=== PATIENT | female | born 1995 | race Asian ===

== ENCOUNTER 2020-11-09 01:39 | Emergency (ER) | payer OTHER ==
[2020-11-09] MEDS ORDERED: ACETAMINOPHEN 1000 MG/100 ML VIAL (NON FORMULARY) IVPB ONE (01:49)
[2020-11-09] MEDS ORDERED: LACTATED RINGERS SOLUTION 1000 ML INFUS.BAG IV ONE (01:49)
[2020-11-09] MEDS ORDERED: MORPHINE SULFATE 2 MG/ML VIAL IVPUSH ONE (01:51)
[2020-11-09 01:54] VITALS: BMI 31.1
[2020-11-09] MEDS ORDERED: MORPHINE SULFATE 2 MG/ML VIAL ONE (02:07)
[2020-11-09] MEDS ORDERED: ACETAMINOPHEN INJECTION 100 ML IVPB ONE (02:07)
[2020-11-09 03:45] VITALS: BP 134/86; PULSE 76; TEMP 98.6
== END 2020-11-09 03:46 | disposition short-term general hospital (02) ==
LOC: JER 01:39
PROC: 3E033NZ Introduction of Analgesics, Hypnotics, Sedatives into Peripheral Vein, Percutaneous Approach (ICD-10-PCS; principal; 2020-11-09)
PROC: 3E033GC Introduction of Other Therapeutic Substance into Peripheral Vein, Percutaneous Approach (ICD-10-PCS; 2020-11-09)
DX: T20.10XA Burn of first degree of head, face, and neck, unspecified site, initial encounter (principal); T21.11XA Burn of first degree of chest wall, initial encounter
CPT/HCPCS: 99284-25; J0131

== ENCOUNTER 2022-11-01 20:28 | Emergency (ER) | payer OTHER ==
[2022-11-01 20:34] VITALS: BP 112/71; PULSE 90; RESP 18; TEMP 98.2; BMI 32.7
[2022-11-01] MEDS ORDERED: ACETAMINOPHEN 325 MG TABLET (FP) PO ONE (21:45)
[2022-11-01] MEDS ORDERED: ACETAMINOPHEN 325 MG TABLET (FP) ONE (22:12)
[2022-11-01 22:47] LABS: BASO % 0.2 % (0-2.0); EOS % 0.7 % (0-4.5); HEMATOCRIT 40.2 % (32.4-45.2); HEMOGLOBIN 13.7 GM/dL (10.7-15.3); LYMPH % 18.6 % (8-40); MCH 28.4 pg (25.7-33.7); MCHC 34.2 g/dl (32.0-36.0); MEAN PLT VOLUME 7.2 fl (7.5-11.1); MONO % 4.6 % (3.8-10.2); NEUT % 75.9 % (42.8-82.8); PLATELET COUNT 383 10^3/uL (134-434); RBC 4.84 M/mm3 (3.60-5.2); WHITE BLOOD COUNT 15.2 K/mm3 (4.0-10.0)
[2022-11-01 22:48] LABS: URINE APPEARANCE CLEAR; URINE BILIRUBIN NEGATIVE (NEGATIVE); URINE COLOR YELLOW; URINE GLUCOSE (UA) NEGATIVE (NEGATIVE); URINE KETONE TRACE (NEGATIVE); URINE LEUK ESTERASE NEGATIVE (NEGATIVE); URINE NITRITE NEGATIVE (NEGATIVE); URINE PROTEIN NEGATIVE (NEGATIVE); URINE UROBILINOGEN 0.2 mg/dL (0.2-1.0)
[2022-11-01 23:13] LABS: POTASSIUM 3.9 mmol/L (3.5-5.1)
[2022-11-01 23:15] LABS: ALBUMIN 3.4 g/dl (3.4-5.0); BLOOD UREA NITROGEN 8.4 mg/dL (7-18); CALCIUM 8.9 mg/dL (8.5-10.1)
[2022-11-01 23:19] LABS: CREATININE 0.5 mg/dL (0.55-1.3)
[2022-11-01 23:20] LABS: BILIRUBIN,TOTAL 0.1 mg/dL (0.2-1)
== END 2022-11-01 23:54 | disposition home or self-care (01) ==
LOC: JER 20:28
DX: O26.892 Other specified pregnancy related conditions, second trimester (principal); R10.9 Unspecified abdominal pain; Z3A.15 15 weeks gestation of pregnancy
CPT/HCPCS: 36415; 76815-TC; 80053; 81003; 84702; 85025; 86850; 86900; 86901; 87086; 99284-25

== ENCOUNTER 2023-04-08 10:23 | Inpatient (IN) | payer OTHER ==
[2023-04-08 11:16] LABS: HEMOGLOBIN 13.6 GM/dL (10.7-15.3); MCH 28.3 pg (25.7-33.7); MCHC 33.3 g/dl (32.0-36.0); MEAN PLT VOLUME 7.5 fl (7.5-11.1); PLATELET COUNT 332 10^3/uL (134-434); RBC 4.82 M/mm3 (3.60-5.2); RDW 14.9 % (11.6-15.6); WHITE BLOOD COUNT 15.2 K/mm3 (4.0-10.0)
[2023-04-08 11:34] LABS: INR 0.97 (0.83-1.09); PROTHROMBIN TIME (PATIENT) 11.3 SEC (9.7-13.0)
[2023-04-08 11:37] LABS: ACTIVATED PTT 28.1 SECONDS (25.2-36.5)
[2023-04-08] MEDS: DEXTROSE 5%-LACTATED RINGERS 1,000 ML IV SCH (11:45)
[2023-04-08 11:48] VITALS: BMI 38.9
[2023-04-08 12:11] LABS: POTASSIUM 4.3 mmol/L (3.5-5.1)
[2023-04-08 12:20] LABS: ALBUMIN 3.1 g/dl (3.4-5.0); BLOOD UREA NITROGEN 8.2 mg/dL (7-18); CALCIUM 9.9 mg/dL (8.5-10.1)
[2023-04-08 12:23] LABS: CREATININE 0.5 mg/dL (0.55-1.3)
[2023-04-08 12:25] LABS: BILIRUBIN,TOTAL 0.3 mg/dL (0.2-1)
[2023-04-08 12:28] LABS: TOT PROT 6.8 g/dl (6.4-8.2)
[2023-04-08 12:37] LABS: SYPHILIS W/ RPR CONF NON-REACTIVE (NONREACTIVE)
[2023-04-08] MEDS: MISOPROSTOL 100 MCG TABLET PV SCH (12:55)
[2023-04-08 13:05] LABS: HIV INTERPRETATION NEGATIVE (NEGATIVE)
[2023-04-08 14:11] LABS: ANISOCYTOSIS 0; HELMET CELLS 0; HOWELL-JOLLY BODIES 0; MACROCYTOSIS 0; OVALOCYTE 0; ROULEAU 0; SICKELED CELLS 0; TARGET CELLS 0; TEAR DROP CELLS 0; TOXIC GRANULATION 0
[2023-04-08] MEDS ORDERED: OXYTOCIN 30 UNITS in 0.9% NS 30 UNIT/500 ML INFUS.BAG IVPB ONE (17:25)
[2023-04-08] MEDS: SODIUM CHLORIDE 500 ML IV STA (17:30)
[2023-04-08] MEDS: OXYTOCIN 30 UNITS in 0.9% NS 30 UNIT/500 ML INFUS.BAG IVPB SCH (17:35)
[2023-04-08] MEDS ORDERED: PENICILLIN G POTASSIUM 5,000,000 UNIT/250 ML BAG IVPB ONE (21:57)
[2023-04-08] MEDS: PENICILLIN G POTASSIUM 5,000,000 PRE-DOCK IN NS 250 ML IVPB ONE (22:00)
[2023-04-08] MEDS ORDERED: LIDOCAINE HCL 1% PRESERVATIVE FREE - 30ML VIAL ONE (22:44)
[2023-04-08] MEDS ORDERED: OXYTOCIN 20 UNITS in 0.9% NS 20 UNIT/1,000 ML INFUS.BAG IV ONE (22:44)
[2023-04-09] MEDS: OXYTOCIN 20 UNITS in 0.9% NS 20 UNIT/1,000 ML INFUS.BAG IV SCH (00:26)
[2023-04-09] MEDS ORDERED: IBUPROFEN 600 MG TABLET (FP) PO PRN (00:45)
[2023-04-09] MEDS ORDERED: BENZOCAINE 28 GM HEMORRHOIDAL OINTMENT TP PRN (00:45)
[2023-04-09] MEDS ORDERED: ACETAMINOPHEN 325 MG TABLET (FP) PO PRN (00:45)
[2023-04-09] MEDS ORDERED: WITCH HAZEL 50% (TUCKS) 40 PAD/JAR PAD TP PRN (00:45)
[2023-04-09] MEDS: DEXTROSE 5%-LACTATED RINGERS 1,000 ML IV SCH (01:22)
[2023-04-09] MEDS ORDERED: PENICILLIN G POTASSIUM 2,500,000 UNIT in SODIUM CHLORIDE 100 ML IVPB SCH (02:00)
[2023-04-09 02:04] LABS: CORD BASE EXCESS -11.8 mmol/L (0-2); CORD HCO3 17.6 mmHg (20-29); CORD PCO2 52.9 mmHg (30-78); CORD pH 7.141 (7.14-7.44)
[2023-04-09] MEDS: DIPHTH,PERTUSS(ACELL),TET 0.5 ML DISP.SYRIN IM ONE (09:46)
[2023-04-10 08:50] LABS: BASO % 0.4 % (0-2.0); EOS % 0.6 % (0-4.5); HEMATOCRIT 35.8 % (32.4-45.2); HEMOGLOBIN 11.5 GM/dL (10.7-15.3); LYMPH % 13.4 % (8-40); MCH 27.5 pg (25.7-33.7); MCHC 32.2 g/dl (32.0-36.0); MEAN CELL VOLUME 85.4 fl (80-96); MEAN PLT VOLUME 7.7 fl (7.5-11.1); MONO % 5.9 % (3.8-10.2); NEUT % 79.7 % (42.8-82.8); PLATELET COUNT 291 10^3/uL (134-434); RBC 4.19 M/mm3 (3.60-5.2); RDW 14.5 % (11.6-15.6); WHITE BLOOD COUNT 17.8 K/mm3 (4.0-10.0)
[2023-04-10] MEDS: PENICILLIN G POTASSIUM 20,000,000 (20Mm) UNITS VIAL IVPB ONE (17:12)
[2023-04-11 12:49] VITALS: BP 135/78; PULSE 110; RESP 18; TEMP 98.1
== END 2023-04-11 14:25 | disposition home or self-care (01) | DRG 807 ==
LOC: JLDR 10:23 → J3W 04-09 02:37
PROVIDERS: ADMIT Obstetrics & Gynecology Maternal & Fetal Medicine; ATTEND Obstetrics & Gynecology Maternal & Fetal Medicine
PROC: 10E0XZZ Delivery of Products of Conception, External Approach (ICD-10-PCS; principal; 2023-04-09)
DX: O13.4 Gestational [pregnancy-induced] hypertension without significant proteinuria, complicating childbirth (principal); Z37.0 Single live birth; O36.5930 Maternal care for other known or suspected poor fetal growth, third trimester, not applicable or unspecified; O99.214 Obesity complicating childbirth; O34.03 Maternal care for unspecified congenital malformation of uterus, third trimester; Q51.3 Bicornate uterus; Z3A.37 37 weeks gestation of pregnancy
CPT/HCPCS: 36415; 36600; 80048; 80053; 82803; 85025; 85610; 85730; 86780; 86850; 86900; 86901; 87389; 88307-TC; 90715